=== PATIENT | male | born 1995 | race Asian ===

== ENCOUNTER → 2024-04-25 09:13 | Outpatient (CLI) | payer OTHER, SELFPAY ==
[2024-04-25 09:58] LABS: Add Manual Diff / Slide Review NO; Basophils Absolute Auto 0 /uL (0-100); Basophils Percent Auto 0.4 % (0-2); Eosinophils Absolute Auto 200 /uL (0-450); Eosinophils Percent Auto 4.4 % (2-4); Hematocrit 44.1 % (41-53); Hemoglobin 14.9 g/dL (13.5-17.5); Lymphocytes Absolute Auto 1700 /uL (1100-4500); Lymphocytes Percent Auto 33.3 % (25-40); Mean Corpuscular HGB Conc 33.7 % (30-36); Mean Corpuscular Hemoglobin 29.4 PG (26-34); Mean Corpuscular Volume 87.2 fL (80-100); Monocytes Absolute Auto 400 /uL (0-900); Monocytes Percent Auto 6.8 % (3-14); Neutrophils Absolute Auto 2900 /uL (1500-7000); Neutrophils Percent Auto 55.1 % (50-75); Platelet Count 331 X10^3/uL (150-400); Red Blood Cell Count 5.06 X10^6/uL (4.5-5.9); Red Cell Distribution Width 14.4 % (11.6-14.8); White Blood Cell Count 5.2 X10^3/uL (4.5-11.0)
[2024-04-25 10:21] LABS: Alanine Aminotransferase 30 IU/L (<50); Albumin 4.8 g/dL (3.5-5.0); Albumin Globulin Ratio 1.7 (1.0-2.8); Alkaline Phosphatase 54 U/L (38-126); Aspartate Aminotransferase 27 IU/L (17-59); BUN Creatinine Ratio 23.8 (6-22); Bilirubin Total 0.5 mg/dL (0.2-1.3); Blood Urea Nitrogen 25 mg/dL (9-20); Carbon Dioxide 27 mmol/L (22-32); Chloride 102 mmol/L (98-107); Cholesterol 232 mg/dL (140-199); Estimated Glomerular Filt Rate > 60 mL/min (>60); Globulin 2.9 g/dL (1.7-4.1); Glucose 100 mg/dL (70-100); HDL Cholesterol 65 mg/dL (40-60); HEMOLYSIS < 15 (0-50); LDL Cholesterol Calculated 154 mg/dL (<100); Potassium 4.6 mmol/L (3.4-5.1); Sodium 139 mmol/L (137-145); Total Protein 7.7 g/dL (6.3-8.2); Triglycerides 65 mg/dL (35-150)
== END ==
PROVIDERS: PCP Family Medicine; Referring Provider Family Medicine; Visit Provider Family Medicine
DX: Z00.00 Encounter for general adult medical examination without abnormal findings (principal); Z83.42 Family history of familial hypercholesterolemia
CPT/HCPCS: 36415; 80053; 80061; 85025

== ENCOUNTER 2024-07-10 04:24 | Emergency (ER) | payer OTHER, SELFPAY ==
[2024-07-10 04:28] VITALS: BP 148/93
[2024-07-10 04:29] VITALS: PULSE 76; O2SAT 99
[2024-07-10 04:30] VITALS: BP 148/93; PULSE 78; PULSE 79; RESP 16; TEMP 36.6; O2SAT 97; O2SAT 99; BMI 26.9
--- NOTE | 2024-07-10 04:33 | ED.ABDPAIN ---
HPI - Abdominal Pain General Chief Complaint: Abdominal Pain Stated Complaint: Abdominal Pain Time Seen by Provider: 07/10/24 04:31 Source: patient Mode of arrival: Ambulatory History of Present Illness HPI narrative: 28-year-old male was awake after midnight tending to his toddler, when he noticed right flank pain without trauma injury or twisting or lifting, some anterior radiation to the right upper quadrant. No history of prior abdominopelvic surgeries. No history of known kidney stones or gallstones. No dysuria or frequency of urination. No recent cough or shortness of breath. Denies chest pain. No similar symptoms prior. No known history of colitis or diverticulitis. Related Data Home Medications Medication Instructions Recorded Confirmed No Known Home Medications 12/31/22 04/25/24 Allergies Allergy/AdvReac Type Severity Reaction Status Date / Time No Known Drug Allergies Allergy Unverified 04/25/24 08:25 Patient History Medical History Well adult exam Bilateral hip pain Bilateral knee pain Social History Smoking Status: Never smoker Smoking Status: Never smoker Exam Narrative Exam Narrative: GENERAL: Well-developed patient, in mild distress. HEAD: Atraumatic. Normocephalic. EYES: Pupils equal round and reactive. Extraocular motions intact. No scleral icterus. No injection or drainage. ENT: Nose without bleeding, purulent drainage. Throat without erythema, tonsillar hypertrophy or exudate. Airway patent. NECK: Trachea midline. Non tender CARDIOVASCULAR: Regular rate and rhythm without murmurs, gallops, or rubs. RESPIRATORY: Clear to auscultation. Breath sounds equal bilaterally. No wheezes, rales, or rhonchi. GASTROINTESTINAL: Abdomen soft, non-tender, nondistended. EXTREMITIES: No edema or joint tenderness. BACK: Nontender without deformity or crepitance. No flank tenderness. NEURO: AOx3. Motor functions grossly nonfocal SKIN: No rash or erythema of visible areas Initial Vital Signs Initial Vital Signs: Vital Signs Blood Pressure 148/93 H 07/10/24 04:28 Course Orders Ordered: ED Orders 07/10/24 04:35 Complete Blood Count AUTO DIFF Stat Comprehensive Metabolic Panel Stat Lipase Stat 07/10/24 04:46 CT abdomen pelvis wo con Stat Discontinued Medications Famotidine (Famotidine 20 Mg/2 Ml Vial) 20 mg IV NOW LUIGI Last Admin: 07/10/24 05:22 Dose: 20 mg Documented By: LANDON Vital Signs Vital signs: Vital Signs - 8 hr 07/10/24 04:28 07/10/24 04:29 07/10/24 04:30 Temperature 97.8 F Pulse Rate 76 78 Respiratory Rate 16 Blood Pressure 148/93 H 148/93 H Pulse Oximetry 99 97 Oxygen Delivery Method Room Air 07/10/24 04:30 07/10/24 05:00 07/10/24 05:30 Temperature Pulse Rate 79 67 65 Respiratory Rate 19 19 Blood Pressure Pulse Oximetry 99 98 97 Oxygen Delivery Method Room Air 07/10/24 05:50 Temperature Pulse Rate Respiratory Rate Blood Pressure 144/84 H Pulse Oximetry Oxygen Delivery Method MDM - Abdominal Pain Lab Data Attestation: I reviewed the patient's lab results. Lab results narrative: White blood cell count 6400, hemoglobin 14.7, platelets adequate. Basic metabolic panel unremarkable. Liver functions and lipase normal. 07/10/24 04:35 07/10/24 04:35 Labs: Lab Results 07/10/24 Range/Units 04:35 WBC 6.4 (4.5-11.0) X10^3/uL RBC 5.05 (4.5-5.9) X10^6/uL Hgb 14.7 (13.5-17.5) g/dL Hct 44.0 (41-53) % MCV 87.1 (80-100) fL MCH 29.1 (26-34) PG MCHC 33.4 (30-36) % RDW 13.7 (11.6-14.8) % Plt Count 252 (150-400) X10^3/uL Neut % (Auto) 59.4 (50-75) % Lymph % (Auto) 24.0 L (25-40) % Winston % (Auto) 13.5 (3-14) % Eos % (Auto) 2.7 (2-4) % Baso % (Auto) 0.4 (0-2) % Neut # (Auto) 3800 (0132-9892) /uL Lymph # (Auto) 1500 (1842-7996) /uL Winston # (Auto) 900 (0-900) /uL Eos # (Auto) 200 (0-450) /uL Baso # (Auto) 0 (0-100) /uL Sodium 138 (137-145) mmol/L Potassium 3.6 (3.4-5.1) mmol/L Chloride 104 (98-107) mmol/L Carbon Dioxide 28 (22-32) mmol/L BUN 22 H (9-20) mg/dL Creatinine 0.88 (0.66-1.25) mg/dL Estimated GFR > 60 (>60) mL/min BUN/Creatinine Ratio 25.0 H (6-22) Glucose 106 H (70-99) mg/dL Calcium 8.8 (8.4-10.2) mg/dL Total Bilirubin 0.3 (0.2-1.3) mg/dL AST 27 (17-59) IU/L ALT 30 (<50) IU/L Alkaline Phosphatase 67 (38-126) U/L Total Protein 7.0 (6.3-8.2) g/dL Albumin 4.3 (3.5-5.0) g/dL Globulin 2.7 (1.7-4.1) g/dL Albumin/Globulin Ratio 1.6 (1.0-2.8) Lipase 100 (23-300) U/L MDM Narrative Medical decision making narrative: 28-year-old male with right-sided abdominal discomfort last few hours, no significant tenderness on exam. Afebrile, sirs screen negative. Labs pending. Screening labs unremarkable serum studies. Patient amenable to imaging to look for kidney stone or other etiology of discomfort. CT abdomen and pelvis noncontrast study ordered. CT abdomen and pelvis. Impressions: ?Multiple enlarged mesenteric root lymph nodes are of uncertain etiology. The differential diagnosis includes mesenteric panniculitis, neoplasm (specifically lymphoma), inflammatory enlargement secondary to inflammatory bowel disease. The distribution is atypical for mesenteric adenitis.? See tele radiology report. Copy of the report provided for patient, with discussion. Patient will need further workup of lymphadenopathy intra-abdominal. Might need biopsy, versus interval repeat study. Consider oncology follow up. Consider surgery follow up. Patient advised to follow up with his regular physician to coordinate outpatient further evaluation consultations as needed. Discharge Plan Departure Patient Disposition: Home Clinical Impression: Abdominal pain, Mesenteric lymphadenopathy Activity Restrictions/Additional Instructions: Abdominal pain of unclear etiology. Lab testing without definite cause. CT abdomen and pelvis imaging did not show any kidney stones or obstructive uropathy, no intestinal inflammation or obstruction, but diffuse lymphadenopathy (enlarged lymph nodes) was mentioned. This could be lymphoma/cancer, or some other form of reactive lymph nodes such as an association with inflammatory bowel disease. Unclear if a lymph node enlargement is related to your current pain but possibly so. This needs urgent follow up to make sure you are not developing a cancer, consider Gastroenterology consultation in follow up. There is no gastroenterology service here. Recheck with your regular doctor soon as possible to expedite referrals to Gastroenterology and/or oncology and/or other specialists as needed. Take Tylenol as needed for discomfort. Recheck earlier to this/nearest emergency department for any change worsening symptoms or any concerns prior. Prescriptions: No Action No Known Home Medications Referrals: Garo Arias, [Primary Care Provider] - Stand Alone Forms: Patient Portal/API/Survey
[2024-07-10 04:46] LABS: Add Manual Diff / Slide Review NO; Basophils Absolute Auto 0 /uL (0-100); Basophils Percent Auto 0.4 % (0-2); Eosinophils Absolute Auto 200 /uL (0-450); Eosinophils Percent Auto 2.7 % (2-4); Hemoglobin 14.7 g/dL (13.5-17.5); Lymphocytes Absolute Auto 1500 /uL (1100-4500); Mean Corpuscular HGB Conc 33.4 % (30-36); Mean Corpuscular Hemoglobin 29.1 PG (26-34); Mean Corpuscular Volume 87.1 fL (80-100); Monocytes Absolute Auto 900 /uL (0-900); Monocytes Percent Auto 13.5 % (3-14); Neutrophils Absolute Auto 3800 /uL (1500-7000); Neutrophils Percent Auto 59.4 % (50-75); Platelet Count 252 X10^3/uL (150-400); Red Blood Cell Count 5.05 X10^6/uL (4.5-5.9); Red Cell Distribution Width 13.7 % (11.6-14.8); White Blood Cell Count 6.4 X10^3/uL (4.5-11.0)
--- NOTE | 2024-07-10 04:46 | DI.CT.S_ITS ---
PROCEDURE: CT ABDOMEN PELVIS WO CON INDICATIONS: R flank/RUQ pain TECHNIQUE: After the administration of oral contrast, 5 mm thick sections acquired from the diaphragms to the symphysis. 5 mm coronal and sagittal reformats were performed. For radiation dose reduction, the following was used: automated exposure control, adjustment of mA and/or kV according to patient size. COMPARISON: None. FINDINGS: Image quality: Diagnostic. Lower Chest: No significant findings. ABDOMEN: Liver: No contour-deforming mass. Gallbladder: No radiopaque gallstones or wall thickening. Biliary ducts: No biliary dilation. Pancreas: No ductal dilation. Spleen: Size is within normal limits. Adrenal Glands: No adrenal nodules. Kidneys and Ureters: No hydronephrosis. No contour-deforming mass. Stomach and Bowel: Normal colonic caliber, without significant wall thickening. Colonic diverticulosis without evidence of diverticulitis. Normal appendix. Peritoneum: No abnormal intraperitoneal fluid. No free air. Ventral Wall: No significant hernia. Abdominal Nodes: No retroperitoneal or mesenteric adenopathy by size criteria. Prominent central mesenteric lymph nodes. Vessels: Aorta and inferior vena cava are normal in size. PELVIS: Pelvic Organs: Unremarkable. Bladder: Unremarkable. Pelvic Nodes: No enlarged lymph nodes. Miscellaneous: No inguinal hernias are seen. Bones: No aggressive osseous abnormality. IMPRESSION: No findings to explain the patient's right lower quadrant pain. No nephrolithiasis. Normal gallbladder. Normal appendix. Prominent central mesenteric lymph nodes, probably inflammatory. Consider six-month follow-up to ensure stability. Dictated by: Gerard Lion M.D. on 07/10/2024 at 8:50 Approved by: Gerard Lion M.D. on 07/10/2024 at 8:52
[2024-07-10 04:59] LABS: Alanine Aminotransferase 30 IU/L (<50); Albumin 4.3 g/dL (3.5-5.0); Albumin Globulin Ratio 1.6 (1.0-2.8); Alkaline Phosphatase 67 U/L (38-126); Aspartate Aminotransferase 27 IU/L (17-59); Bilirubin Total 0.3 mg/dL (0.2-1.3); Blood Urea Nitrogen 22 mg/dL (9-20); Calcium 8.8 mg/dL (8.4-10.2); Carbon Dioxide 28 mmol/L (22-32); Chloride 104 mmol/L (98-107); Estimated Glomerular Filt Rate > 60 mL/min (>60); Globulin 2.7 g/dL (1.7-4.1); Glucose 106 mg/dL (70-99); HEMOLYSIS < 15 (0-50); Lipase 100 U/L (23-300); Potassium 3.6 mmol/L (3.4-5.1); Sodium 138 mmol/L (137-145)
[2024-07-10 05:00] VITALS: PULSE 67; RESP 19; O2SAT 98
[2024-07-10] MEDS: FAMOTIDINE 20 MG/2 ML VIAL IV (05:22)
[2024-07-10 05:30] VITALS: PULSE 65; RESP 19; O2SAT 97
[2024-07-10 05:50] VITALS: BP 144/84
== END 2024-07-10 05:51 | disposition home or self-care (01) ==
PROVIDERS: Emergency Provider Emergency Medicine; PCP Family Medicine
DX: R10.11 Right upper quadrant pain (principal); R59.0 Localized enlarged lymph nodes
CPT/HCPCS: 36415; 74176; 80053; 83690; 85025; 96374; 99284

== ENCOUNTER → 2024-12-27 08:59 | Outpatient (CLI) | payer OTHER, SELFPAY ==
--- NOTE | 2024-12-27 09:00 | DI.CT.S_ITS ---
PROCEDURE: CT ABDOMEN PELVIS W CON INDICATIONS: 6mo f/up, prominent central mesenteric lymph nodes TECHNIQUE: After the administration of intravenous contrast, axial sections acquired from the lung bases to the pubic symphysis. Coronal and sagittal reformats were performed. For radiation dose reduction, the following was used: automated exposure control, adjustment of mA and/or kV according to patient size. COMPARISON: [facility], CT, CT ABDOMEN PELVIS WO [facility], 07/10/2024, 4:59. FINDINGS: Image quality: Diagnostic. Lower Chest: No significant findings. ABDOMEN: Liver: No solid mass. Gallbladder: No radiopaque gallstones or wall thickening. Biliary ducts: No biliary dilation. Pancreas: No ductal dilation. Spleen: Size is within normal limits. Adrenal Glands: No adrenal nodules. Kidneys and Ureters: No hydronephrosis. No solid mass. No complex renal cystic lesion which requires follow up. Stomach and Bowel: Normal colonic caliber, without significant wall thickening. The appendix is unremarkable Peritoneum: No abnormal intraperitoneal fluid. No free air. Stable appearance of several mildly prominent mesenteric lymph nodes. Ventral Wall: No significant ventral hernia. Abdominal Nodes: No retroperitoneal or mesenteric adenopathy by size criteria. Vessels: Aorta and inferior vena cava are normal in size. PELVIS: Pelvic Organs: Unremarkable. Bladder: No bladder wall thickening, accounting for underdistention. Pelvic Nodes: No enlarged lymph nodes. Miscellaneous: No inguinal hernias are seen. Bones: No aggressive osseous abnormality. IMPRESSION: 1. Stable appearance of several mildly prominent mesenteric lymph nodes, probably reactive. 2. No suspicious focal lesion seen. Dictated by: Ho Reese M.D. on 12/27/2024 at 20:10 Approved by: Ho Reese M.D. on 12/27/2024 at 20:14
== END ==
LOC: CT 08:59
PROVIDERS: PCP Family Medicine; Referring Provider Family Medicine; Visit Provider Family Medicine
DX: C85.90 Non-Hodgkin lymphoma, unspecified, unspecified site (principal); R59.0 Localized enlarged lymph nodes
CPT/HCPCS: 74177; Q9967